=== PATIENT | male | born 1995 | race Caucasian/White ===

== ENCOUNTER 2017-01-09 22:52 | Emergency (ER) | payer OTHER ==
--- NOTE | ~2017-01-09 | CR172 ---
[facility] A Service of [facility] & [facility] RADIOLOGY TEXT RESULTS PATIENT: VICTOR M SPENECR LOCATION: SED : 95 UNIT #: [id number] AGE: [address]: Raciel Beckham MD SEX: M ORDER DR: [id number] [place] [id number] E MR#: [id number] Acc #: [id number] NAME: VICTOR M SPENCER : 1995 SEX: M STUDY DATE/TIME: 01/09/2017 23:15 UNIT: SED ROOM: STUDY DESCRIPTION: CR Knee 3 Views Lt Attending Physician: Raciel Beckham M.D. Ordering Physician: Raciel Beckham M.D. MEDICAL IMAGING REPORT This report is preliminary unless electronic signature is present. EXAM Left knee INDICATION Left knee pain after falling 2 days ago. FINDINGS AP, lateral and sunrise view of the left knee were obtained. The bones are normal and there is no fracture or effusion. IMPRESSION Normal left knee. Dictated by... Odin Polk M.D. THIS IS AN ELECTRONICALLY VERIFIED REPORT Odin Polk M.D. at 01/10/2017 5:56 AM [place] TD: 01/09/2017 23:50 JOB #: [id number] MEDICAL IMAGING REPORT Page 1 of 1
== END 2017-01-10 00:02 | disposition home or self-care (01) ==
LOC: SED 22:52
DX: S80.01XA Contusion of right knee, initial encounter (principal); F17.200 Nicotine dependence, unspecified, uncomplicated; W18.30XA Fall on same level, unspecified, initial encounter; Y93.21 Activity, ice skating
CPT/HCPCS: 73562; 99283

== ENCOUNTER 2017-03-23 23:50 | Emergency (ER) | payer OTHER ==
[~2017-03-23] VITALS: Ht 185.4 cm; Wt 68.0 kg
--- NOTE | ~2017-03-23 | CR281 ---
[facility]. [facility] A Service of [facility] & [facility] RADIOLOGY TEXT RESULTS PATIENT: VICTOR M SPENCER LOCATION: SED : 95 UNIT #: [id number] AGE: [address]: Dipika Covington SEX: M ORDER DR: [id number] [address] [address] [id number] E MR#: [id number] Acc #: [id number] NAME: VICTOR M SPENCER : 1995 SEX: M STUDY DATE/TIME: 03/24/2017 0:13 UNIT: SED ROOM: STUDY DESCRIPTION: CR Wrist Min 3 View Lt Attending Physician: Dipika Covington Pa-C Ordering Physician: Physician Non-Staff Primary Care Physician: Hal Jeter M.D. MEDICAL IMAGING REPORT This report is preliminary unless electronic signature is present. EXAM Left wrist 3 views HISTORY Wrist pain after injury today. FINDINGS 3 views of the left wrist demonstrate an oblique fracture through the mid shaft of the third metacarpal over a length close to 2 cm as described on hand x-ray reported separately. The remainder of the study is negative. The carpal bone alignment is normal. No joint space narrowing or dislocation. No additional fracture. Dictated by... Ezequiel Lopez M.D. THIS IS AN ELECTRONICALLY VERIFIED REPORT Ezequiel Lopez M.D. at 03/25/2017 4:46 AM BERNABE/lili TD: 03/24/2017 23:15 JOB #: [id number] MEDICAL IMAGING REPORT Page 1 of 1
--- NOTE | ~2017-03-23 | CR141 ---
[facility]. [facility] A Service of [facility] & [facility] RADIOLOGY TEXT RESULTS PATIENT: VICTOR M SPENCER LOCATION: SED : 95 UNIT #: [id number] AGE: [address]: Dipika Covington SEX: M ORDER DR: [id number] [address] [address] [id number] E MR#: [id number] Acc #: [id number] NAME: VICTOR M SPENCER : 1995 SEX: M STUDY DATE/TIME: 03/24/2017 0:13 UNIT: SED ROOM: STUDY DESCRIPTION: CR Hand Min 3 Views Lt Attending Physician: Dipika Covington Pa-C Ordering Physician: Physician Non-Staff Primary Care Physician: Hal Jeter M.D. MEDICAL IMAGING REPORT This report is preliminary unless electronic signature is present. EXAM Left hand, 3 views. HISTORY Hand pain after injury today. FINDINGS Three views of the left hand demonstrate oblique fracture through the mid shaft of the third metacarpal with 5 mm overriding of the proximal and distal fracture fragments and approximately 3 mm separation of the fracture fragments and close to 10 degrees posterior angulation of the fracture apex. Mild soft tissue swelling over the dorsum of the hand. No dislocation. No additional fracture. Dictated by... Ezequiel Lopez M.D. THIS IS AN ELECTRONICALLY VERIFIED REPORT Ezequiel Lopez M.D. at 03/25/2017 4:46 AM EDENL/nannette TD: 03/24/2017 23:11 JOB #: [id number] MEDICAL IMAGING REPORT Page 1 of 1
== END 2017-03-24 01:09 | disposition home or self-care (01) ==
LOC: SED 23:50
DX: S62.323A Displaced fracture of shaft of third metacarpal bone, left hand, initial encounter for closed fracture (principal); V00.131A Fall from skateboard, initial encounter; Y93.51 Activity, roller skating (inline) and skateboarding; Y92.830 Public park as the place of occurrence of the external cause
CPT/HCPCS: 29125; 73110; 73130; 99283